=== PATIENT | female | born 1990 | race Two or more races ===

== ENCOUNTER 2019-02-13 17:55 | Emergency (ER) | payer MEDICAID, OTHER ==
[~2019-02-13] VITALS: Ht 165.1 cm; Wt 104.3 kg
[2019-02-13 18:13] VITALS: BP 104/45
== END 2019-02-13 22:37 | disposition left against medical advice (07) ==
LOC: ER 17:58
DX: K08.89 Other specified disorders of teeth and supporting structures (principal); Z53.21 Procedure and treatment not carried out due to patient leaving prior to being seen by health care provider